=== PATIENT | male | born 1930 | race Caucasian/White ===

== ENCOUNTER 2019-04-11 02:21 | Inpatient (IN) | payer OTHER ==
[~2019-04-11] VITALS: Ht 162.6 cm; Wt 79.3 kg
[2019-04-11] VITALS (7 sets, daily range): BP systolic 147–181; BP diastolic 67–84; PULSE 60–64; RESP 16–18; Ht 162.6 cm; Wt 79.3 kg
[~2019-04-11 02:21] MED LIST: ALLO100T PO; AMLO-147 PO; ASPI-903 PO; ENAL10TA PO; GLIP5TAB13 PO; LEVO500T48 PO; METO25TA4 PO; ZOC10 PO
[2019-04-11] MEDS ORDERED: TAMSULOSIN (SR) 0.4 MG CAP PO ONE (06:30)
[2019-04-11] MEDS ORDERED: HYDROCODONE/APAP (5/325) TAB PO PRN ×2 (06:30)
[2019-04-11] MEDS ORDERED: ACETAMINOPHEN 325 MG TAB PO PRN (06:30)
[2019-04-11] MEDS ORDERED: NACL 0.9% 3 ML SYG IV SCH (06:30)
[2019-04-11] MEDS ORDERED: ONDANSETRON 4 MG INJ IV PRN (06:30)
[2019-04-11] MEDS: SOD CHLORIDE 0.9% 1,000 ML IV SCH (08:39)
[2019-04-11] MEDS: HEPARIN 5,000 UNIT/1 ML VIAL SC SCH ×2 (08:40→20:31)
[2019-04-11] MEDS ORDERED: hydrALAzine 20 MG INJ IV PRN (16:00)
[2019-04-11] MEDS: AMLODIPINE 5 MG TAB PO SCH (16:07)
[2019-04-11] MEDS: CEFTRIAXONE 1 GM/50 ML (PMX) 50 ML IVPB SCH (16:07)
[2019-04-11] MEDS ORDERED: METOPROLOL 25 MG TAB PO SCH (17:30)
[2019-04-11] MEDS: ACCU-CHEK XX SCH ×2 (17:42→20:36)
[2019-04-11] MEDS: glipiZIDE 5 MG TAB PO SCH (17:43)
[2019-04-11] MEDS: METOPROLOL 25 MG TAB PO SCH (17:59)
[2019-04-11] MEDS: ATORVASTATIN 10 MG TAB PO SCH (20:28)
[2019-04-12] VITALS (8 sets, daily range): BP systolic 133–169; BP diastolic 60–74; PULSE 60–64; RESP 16–20
[2019-04-12] MEDS: SOD CHLORIDE 0.9% 1,000 ML IV SCH ×2 (00:10→11:43)
[2019-04-12] MEDS: hydrALAzine 20 MG INJ IV PRN ×2 (00:18→19:58)
[2019-04-12] MEDS ORDERED: PANTOPRAZOLE 40 MG INJ ONE (05:02)
[2019-04-12] MEDS: ACCU-CHEK XX SCH ×4 (07:00→21:00)
[2019-04-12] MEDS ORDERED: ALLOPURINOL 100 MG TAB ONE (07:53)
[2019-04-12] MEDS: glipiZIDE 5 MG TAB PO SCH ×2 (08:01→17:32)
[2019-04-12] MEDS: METOPROLOL 25 MG TAB PO SCH ×2 (08:01→21:15)
[2019-04-12] MEDS: ALLOPURINOL 100 MG TAB PO SCH (08:01)
[2019-04-12] MEDS: AMLODIPINE 5 MG TAB PO SCH (08:02)
[2019-04-12] MEDS: HEPARIN 5,000 UNIT/1 ML VIAL SC SCH ×2 (08:03→21:16)
[2019-04-12] MEDS: CEFTRIAXONE 1 GM/50 ML (PMX) 50 ML IVPB SCH (16:54)
[2019-04-12] MEDS: ATORVASTATIN 10 MG TAB PO SCH (21:15)
[2019-04-13 02:35] VITALS: BP 151/68; PULSE 60; RESP 16
[2019-04-13] MEDS: SOD CHLORIDE 0.9% 1,000 ML IV SCH (03:27)
[2019-04-13] MEDS: ACCU-CHEK XX SCH ×3 (07:00→17:30)
[2019-04-13 08:11] VITALS: BP 163/71; PULSE 62; RESP 16
[2019-04-13] MEDS: glipiZIDE 5 MG TAB PO SCH ×2 (08:33→16:57)
[2019-04-13] MEDS: HEPARIN 5,000 UNIT/1 ML VIAL SC SCH (08:34)
[2019-04-13] MEDS: ALLOPURINOL 100 MG TAB PO SCH (08:34)
[2019-04-13] MEDS: METOPROLOL 25 MG TAB PO SCH (08:38)
[2019-04-13] MEDS: AMLODIPINE 5 MG TAB PO SCH (08:38)
[2019-04-13 14:17] VITALS: BP 151/70; PULSE 59; RESP 18
[2019-04-13] MEDS: CEFTRIAXONE 1 GM/50 ML (PMX) 50 ML IVPB SCH (16:00)
== END 2019-04-13 18:30 | disposition home or self-care (01) | DRG 696 ==
LOC: 5EC 04:43
PROVIDERS: ADMIT Internal Medicine; ATTEND Hospitalist
DX: R33.9 Retention of urine, unspecified (principal); N39.0 Urinary tract infection, site not specified; N17.9 Acute kidney failure, unspecified; N13.30 Unspecified hydronephrosis; I10 Essential (primary) hypertension; E11.9 Type 2 diabetes mellitus without complications; Z95.0 Presence of cardiac pacemaker; D64.9 Anemia, unspecified
CPT/HCPCS: 74176; 76775; 80048; 80053; 81001; 81003; 82043; 82436; 82962; 83036; 83735; 84100; 84133; 84155; 84300; 85025; 87086; 97162; 97167; C9113; J0360; J0696; J1644; J7030